=== PATIENT | female | born 1970 | race Caucasian/White ===

== ENCOUNTER 2022-01-24 16:30 | Emergency (ER) | payer OTHER, SELFPAY ==
[2022-01-24] VITALS (7 sets, daily range): BP systolic 161–186; BP diastolic 94–117; PULSE 116; RESP 16; TEMP 36.8; O2SAT 97–100
--- NOTE | ~2022-01-24 | CT_ITS ---
EXAMINATION: CT abdomen pelvis w con INDICATION: Left lower quadrant pain TECHNIQUE: Computed tomographic images of the abdomen and pelvis were obtained after the administrati on of 100 cc of Omnipaque 350 intravenous contrast. The dose-length product (DLP) was 391.38 mGy-cm. Automated exposure control and iterative reconstruction technique were employed. COMPARISON: None available FINDINGS: The lung bases are clear. The heart size is normal. Bilateral breast implants are noted. Cy sts of the liver measure up to 1.5 cm in the right hepatic lobe. The spleen, pancreas, gallbladder, a nd adrenal glands are normal. There are peripelvic cysts of the left kidney. The kidneys are otherwis e unremarkable. There is moderate lumbar spondylosis at L5-S1. No pathologically enlarged abdominal o r pelvic lymph nodes are identified. There is no free intraperitoneal gas or evidence of bowel obstru ction. The appendix is normal. There are multiple fibroids of the uterus, some of which are calcified . There appears to be a pedunculated fibroid in the left adnexa. There is a 3.4 cm cyst of the right adnexa and a 1.7 cm cyst of the left adnexa. IMPRESSION: 1. No CT correlate for the patient's symptoms. 2. Fibroid uterus with cystic lesions of the adnexa. If the patient is postmenopausal, follow-up with nonemergent pelvic ultrasound would be recommended. Reviewed, dictated and finalized at location A. IMPRESSION: 1. No CT correlate for the patient's symptoms. 2. Fibroid uterus with cystic lesions of the adnexa. If the patient is postmeno pausal, follow-up with nonemergent pelvic ultrasound would be recommended.
[2022-01-24 19:31] LABS: Hematocrit 43.3 % (37.0-47.0); Hemoglobin 14.9 g/dL (12.0-15.0); Mean Corpuscular HGB Conc 34.4 g/dl (32-36); Mean Corpuscular Volume 92.9 fl (80-100); Mean Platelet Volume 9.9 fl (7.4-10.4); Platelet Count Result 270 k/mm3 (150-375); Red Blood Count 4.66 M/mm3 (4.2-5.4); White Blood Count 5.9 K/mm3 (4.5-10.0)
[2022-01-24 19:37] LABS: Add Urine Microscopic? YES; Appearance Urine Clear (Clear); Bacteria Urine Trace /hpf; Bilirubin Urine Negative (Negative); Blood Urine 1+ (Negative); Color Urine Straw (Yellow); Glucose Urine UA Negative (Negative); Ketones Urine Negative (Negative); Leukocyte Esterase Ur Negative LEU/UL (Negative); Nitrate Urine Negative (Negative); Protein Urine Negative (Negative); RBC Urine 0-2 /hpf (0-2); Squamous Epithelial Cell Urine Rare /hpf (Few); Urobilinogen Urine Negative mg/dL (<2.0); WBC Urine 0-3 /hpf
[2022-01-24 19:42] LABS: Alanine Aminotransferase 27 U/L (6-35); Albumin Level 4.5 g/dL (3.5-5.1); Alkaline Phosphatase 49 U/L (38-126); Anion Gap 11 mmol/L (8-16); Aspartate Amino Transferase 29 U/L (14-36); Bilirubin,Total 0.4 mg/dL (0.2-1.3); Blood Urea Nitrogen 6 mg/dL (7-17); Calcium 8.8 mg/dL (8.4-10.2); Carbon Dioxide 24 mmol/L (22-30); Chloride 104 mmol/L (98-107); Estimated Glomerular Filt Rate > 60; Glucose 91 mg/dL (65-110); Lipase 101 U/L (23-300); Potassium 3.6 mmol/L (3.4-5.0); Sodium 139 mmol/L (137-145)
[2022-01-24 19:43] LABS: Specific Grav Ur 1.003 (1.001-1.035)
[2022-01-24 20:05] LABS: Basophils Absolute Manual 0.05 K/mm3 (0.0-0.1); Basophils Percent Manual 1 % (0-1); Eosinophils Absolute Manual 1.35 K/mm3 (0.02-0.5); Eosinophils Percent Manual 23 % (0-4); Neutrophils Percent Manual 42 % (46-73); Total Cells Counted 100
[2022-01-24 20:06] LABS: Platelet Estimate Adequate (Adequate); Schistocytes None Seen (NORMAL)
[2022-01-25] VITALS: BP 189/120; O2SAT 98
[2022-01-25 00:02] VITALS: O2SAT 99
[2022-01-25 00:18] VITALS: O2SAT 100
[2022-01-25] MEDS: SODIUM CHLORIDE 0.9% IV 1,000 ML 999 ML IV CONT (00:23)
--- NOTE | 2022-01-25 00:27 | ED.GENADULT ---
HPI - General Adult General Chief complaint: Nausea/Vomiting/Diarrhea <CATINA Adrian Last Filed: 01/25/22 03:41> Stated complaint: diarrhea <CATINA Adrian Last Filed: 01/25/22 03:41> Time Seen by Provider: 01/24/22 23:22 <CATINA Adrian Last Filed: 01/25/22 03:41> Source: patient <CATINA Adrian Last Filed: 01/25/22 03:41> Mode of arrival: ambulatory <CATINA Adrian Last Filed: 01/25/22 03:41> Limitations: no limitations <CATINA Adrian Last Filed: 01/25/22 03:41> History of Present Illness HPI narrative: Patient is a 51-year-old female who presents the ED with report of diarrhea. Patient reports having persistent diarrhea since 01/18. She has had numerous episodes each day, causing her to have difficulty sleeping and going about her normal day. She feels like anytime she eats or drinks anything, she has to have a bowel movement. Denies any blood in the stool. She has tried taking Imodium without relief. She does complain of some lower abdominal pain. Denies any nausea, vomiting, fever, dysuria, hematuria, recent travel or antibiotics. <CATINA Adrian Last Filed: 01/25/22 03:41> Related Data Allergies/adverse reactions: Allergies Allergy/AdvReac Type Severity Reaction Status Date / Time hydrocodone Allergy Severe HIVES/SWELL Verified 12/25/17 14:53 ING oxycodone Allergy Severe HIVES/SWELL Verified 12/25/17 14:53 ING Sulfa (Sulfonamide Allergy Unknown Verified 03/22/13 13:02 Antibiotics) STERISTRIP Allergy Severe SKIN Uncoded 12/25/17 14:54 BLISTERS <CATINA Adrian Last Filed: 01/25/22 03:41> Review of Systems Review of Systems: CONSTITUTIONAL: Denies fever, chills, or sweats. CARDIOVASCULAR: Denies chest pain. RESPIRATORY: Denies dyspnea. GASTROINTESTINAL: Reports diarrhea, lower abdominal pain. Denies nausea, vomiting, rectal bleeding. GENITOURINARY: Denies dysuria or hematuria. MUSCULOSKELETAL: Denies back pain. <Tessie Welch PA-C - Last Filed: 01/25/22 03:41> All systems reviewed & are unremarkable except as noted in HPI and below <Tessie Welch PA-C - Last Filed: 01/25/22 03:41> PMFSH Past Medical History Medical History: Medical History No pertinent past medical history <Tessie Welch PA-C - Last Filed: 01/25/22 03:41> Surgical History Surgical History: Surgical History (Updated 01/25/22 @ 00:36 by Tessie Welch PA-C) History of colonoscopy <Tessie Welch PA-C - Last Filed: 01/25/22 03:41> Family History Family History: Family History (Updated 12/01/13 @ 07:13 by DOCTOR UNKNOWN) Grandparent Family history of coronary artery disease Diabetes mellitus Mother Family history of coronary artery disease Father Patient's father is <Tessie Welch PA-C - Last Filed: 01/25/22 03:41> Social History Social History: Social History Smoking status: Never smoker Second hand tobacco smoke exposure: No Alcohol intake: never <Tessie Welch PA-C - Last Filed: 01/25/22 03:41> Exam Narrative: GENERAL: Well appearing, well-nourished, non-toxic, in no acute distress. HEAD: Normocephalic, atraumatic. NECK: Supple. No adenopathy, no masses. RESPIRATORY: Airway patent, respirations nonlabored. Clear to auscultation bilaterally, no rales, rhonchi, wheezing. CARDIOVASCULAR: Borderline tachycardic with regular rhythm without murmurs, rubs, or gallops. Peripheral pulses 2+ and equal bilaterally. ABDOMINAL: Soft, mild tenderness throughout lower abdomen, worst in left lower quadrant. Nondistended, no hepatosplenomegaly. Normoactive BS. MUSCULOSKELETAL: Moves all extremities. Strength/ROM intact without gross deformi
[2022-01-25 00:30] VITALS: O2SAT 99
[2022-01-25 01:50] LABS: Toxigenic C. Diff NEGATIVE (NEGATIVE)
== END 2022-01-25 03:47 | disposition home or self-care (01) ==
PROVIDERS: Emergency Medicine; Physician Assistant; Emergency Provider Emergency Medicine
DX: R19.7 Diarrhea, unspecified (principal); N13.30 Unspecified hydronephrosis; D25.9 Leiomyoma of uterus, unspecified
CPT/HCPCS: 36415; 74177; 80053; 81001; 81025; 83690; 85025; 87045; 87427; 87493; 96360; 96361; 99284; J7030; Q9967

== ENCOUNTER → 2022-04-08 14:10 | Outpatient (CLI) | payer OTHER, SELFPAY ==
--- NOTE | ~2022-04-08 | US_ITS ---
EXAMINATION: US transvaginal DATE: 04/08/2022 14:45 INDICATION: Leiomyoma of uterus, unspecified . Pelvic pain. TECHNIQUE: Multiple transabdominal and endovaginal sonographic images of the pelvis were obtained. COMPARISON: CT abdomen and pelvis 01/25/2022. FINDINGS: Uterus: 9.8 x 5.6 x 7.2 cm. Multiple calcified and noncalcified intramural and subserosal uterine fib roids. 3.2 cm pedunculated anterior/left adnexal fibroid. Endometrial complex measures 15.8 mm. Right Ovary: Not visualized. Left Ovary: 3.5 x 2.5 x 3.0 cm. Vascular flow is present. 1.9 cm simple ovarian or paraovarian cyst There is no free fluid in the pelvis. IMPRESSION: Right ovary not visualized. No correlate for the prior CT finding in the right adnexa. Based on appea ledy on the prior CT, consider follow-up ultrasound in 6-12 months. Endometrial thickening correlate with status of menopause and menstrual phase. Multiple fibroids including a pedunculated anterior/le ft adnexal fibroid. Simple left ovarian/paraovarian cyst. Reviewed, dictated and finalized at [facility]. [employer] IMPRESSION: Right ovary not visualized. No correlate for the prior CT finding in the right adnexa. Based on appearance on the prior CT, consider follow-up ultrasound in 6 -12 months. Endometrial thickening correlate with status of menopause and menst rual phase. Multiple fibroids including a pedunculated anterior/left adnexal fi broid. Simple left ovarian/paraovarian cyst.
== END ==
PROVIDERS: Visit Provider Nurse Practitioner
DX: D25.9 Leiomyoma of uterus, unspecified (principal); N83.202 Unspecified ovarian cyst, left side
CPT/HCPCS: 76830

== ENCOUNTER 2023-07-08 10:21 | Outpatient (CLI) | payer OTHER, SELFPAY ==
--- NOTE | ~2023-07-08 | US_ITS ---
Pelvic ultrasound. Clinical History: Enlarged uterus COMPARISON: 323 Technique: Realtime transabdominal and transvaginal scanning of the pelvis was performed. Color flow Doppler and Doppler spectral analysis were performed. Findings: The uterus is anteverted. The endometrial stripe has a thickness of 4 mm. Multiple fibroid s are present, similar to prior exam. Largest fibroid towards the fundus measuring 4.3 cm in diameter . The right ovary is not visualized. No significant right ovarian or adnexal mass is seen. The left ovary measures 3.5 x 2.2 x 3.4 cm. No significant left ovarian or adnexal mass is seen. There is no evidence of free fluid in the cul de sac. Impression: Multiple uterine fibroids, as detailed above. Reviewed, dictated and finalized at location . Impression: Multiple uterine fibroids, as detailed above.
== END 2023-07-08 10:22 ==
LOC: MICIMG 10:22
PROVIDERS: Visit Provider Nurse Practitioner
DX: N85.2 Hypertrophy of uterus (principal); D25.9 Leiomyoma of uterus, unspecified
CPT/HCPCS: 76856